=== PATIENT | male | born 1970 | race Caucasian/White ===

== ENCOUNTER 2019-04-17 07:57 | Day surgery (SDC) | payer OTHER, SELFPAY ==
[2019-04-17 08:16] VITALS: BP 142/88; PULSE 83; RESP 18; TEMP 36.2; O2SAT 97; BMI 36.1
[2019-04-17] MEDS: Lactated Ringers 1,000 ML 100 ML IV (08:34)
--- NOTE | 2019-04-17 08:49 | HP.PCM_ITS ---
History of Present Illness Date of Admission: 04/17/19 The patient is a 49 year old M here for screening colonoscopy. He has never had a colonoscopy in the past. Denies any abdominal pain or blood in his stool. He denies any family history of colon cancer. Past Medical/Surgical History - Planned Operation Planned Operative Procedure/s: COLONOSCOPY Date of Operative Procedure: 04/17/19 Permit Signed: Yes S.O.S: No Is This Patient Having a Total Joint: No - Previous Hospitalizations/Surgeries HX Hospitalizations: No HX of Surgeries: WISDOM Any Problems With Anesthesia: Yes You/Your Family Experience Fever (Hyperthermia) With Anes: No Cholinesterase deficiency: No - Cardiovascular Hx Chest Pain within Last 2 months: No Hx of Irregular Heartbeat and/or Afib: No Hx Heart Attack: No Hx Congestive Heart Failure: No Hx Rheumatic Fever: No Hx Hypertension: Yes - ON MEDS, CONTROLLED Hx Internal Defibrillator: No Hx Pacemaker: No Hx Cardiac Catheterization: No Hx Cardiac Surgery/Stents/Etc.: No Hx Stress Test: Yes - [facility] 10 YRS AGO HX Edema: No Hx Pain in Legs when Walking/Leg Cramps: No - Respiratory Chronic Cough: No HX of Shortness of Breath: No Hoarseness: No Hx Chronic Obstructive Pulmonary Disease (COPD): No Hx Asthma: No Hx Emphysema: No Hx Sleep Apnea: No Hx Oxygen Use at Home: No Hx Respiratory Tract Infection/Cold (presently): No Do You Snore Loudly (louder than talking or can be heard): No Do You Often Feel Tired/ Fatigued/ Sleepy Dring Daytime?: No Has Anyone Observed You Stop Breathing During Sleep?: No Result (for STOP score): Negative Hx Smoking: No Smoking Status: Never smoker - Gastrointestinal Hx Gastroesophageal Reflux: Yes Controlled With Meds: Yes - ON NEXIUM Hx Gastrointestinal Disorders: No Hx Gastrointestinal Bleed: No Hx Ulcer: No Hx Hiatal Hernia: No Difficulty Chewing/Swallowing: No Recent Onset of Swallowing Problems: No Special diet followed at home: No Hx Unplanned Weight Loss of 20#: No HX Unplanned Weight Gain of 20#: No - Neurological Hx Seizures: No HX Syncope/Blackout Spells/Unconsciousness: No Hx CVA/Stroke: No Hx Transient Ischemic Attacks (TIA): No Hx Multiple Sclerosis: No Hx Parkinson's Disease: No Hx Head/Neck Injury: No Hx Headaches: No Hx Back Injury/Pain: No Recent Onset of Speech Difficulty: No Restless Legs: No Does patient have nerve stimulator: No Patient instructed to have device shut off: No Rep notified?: No - Blood Disorder Hx Leukemia: No Bleeding Tendencies: No Hx Deep Vein Thrombosis: No Hx High Cholesterol: Yes - ON MED Blood Transmitted Disease: No Hx Hepatitis: No Hx Cirrhosis: No Hx Anemia: No Hx Blood Disorders: No - Genitourinary Hx Renal Disease: No - Musculoskeletal Hx Arthritis: No Hx Rheumatoid Arthritis: No Hx Gout: Yes - X1 EPISODE Recent Onset of an Orthopedic Problem: No - Endocrine Hx Diabetes: No Thyroid Disease: No Hx Steroid Therapy: No - Psycho/Social Hx Substance Use: No Hx Alcohol Use: Yes - SOCIAL Hx Anxiety: No Hx Depression: No Mental Illness: No Hx Dementia: No - Miscellaneous Hx Cancer: No Recent Exposure to Contagious Disease: No Active MRSA: No Hx of C-Diff: No Any Loose Teeth: No Allergies No Known Allergies Allergy (Verified 04/17/19 08:15) - Discharge Is Pt Admitted From a Snf, or a Detention: No Who Could Help: After D/C, Where Do you Plan to Go: Return Home - Physical Exam General: Alert, Oriented x3 Lungs: Clear to auscultation, Normal air movement Cardiovascular: Regular rate, Regular Rhythm Abdomen: Soft, Non Tender, Non-Distended Vital Signs Temp Pulse Resp BP Pulse Ox 97.2 F L 83 18 142/88 H 97 04/17/19 08:16 04/17/19 08:16 04/17/19 08:16 04/17/19 08:16 04/17/19 08:16 Oxygen Delivery Method Room Air Weight: 251 lb 8.759 oz Body Mass Index (BMI) 36.1 Assessment/Plan 49-year-old male for screening colon cancer I explained endoscopy in detail to the patient. I explained the risks including but not limited to stroke or heart attack with anesthesia, perforation of the GI tract, bleeding, infection. I explained that any of these could necessitate further emergency surgery. The patient understands and all questions were answered sufficiently. The patient wishes to proceed with procedure. Darrius Griffiths MD Pager: [facility] [address] [place] [address], [address] [place] [phone] Office: Surgery Risks - Colonoscopy Risks Include but are not Limited To: Risks include but are not limited to: Bleeding, perforation requiring further surgery, inability to complete colonoscopy requiring barium enema.
--- NOTE | 2019-04-17 09:13 | OP.ENDO_ITS ---
04/17/2019 Zak Mota [address] [place] [address] Re : Colonoscopy procedure for H Rising Dear Dr. Mota This procedure was performed on Wednesday, April 17, 2019. My impressions and recommendations are as follows: Impressions : - The entire examined colon is normal on direct and retroflexion views. - No specimens collected. Recommendations : - Discharge patient to home. - Resume previous diet. - Continue present medications. - Await pathology results. - Repeat colonoscopy in 10 years for screening purposes. My findings are described in the full procedure note, which is enclosed. If I can be of further assistance, please feel free to contact me at Doctor phone number(s): , Work: . Sincerely, Darrius Griffiths MD 04/17/2019 9:12:37 AM This report has been signed electronically.
[2019-04-17 09:14] VITALS: BP 115/60; BP 142/88; PULSE 71; RESP 18; TEMP 36.4; O2SAT 94
[2019-04-17 09:20] VITALS: BP 104/82; BP 142/88; PULSE 88; RESP 18; O2SAT 97
[2019-04-17 09:25] VITALS: BP 104/76; BP 142/88; PULSE 85; RESP 18; O2SAT 96
[2019-04-17 09:30] VITALS: BP 114/78; BP 142/88; PULSE 79; RESP 18; TEMP 36.3; O2SAT 95
[2019-04-17 10:05] VITALS: BP 142/88
== END 2019-04-17 10:19 | disposition home or self-care (01) ==
LOC: EN 07:59 → AC 08:01
PROVIDERS: Family Provider Family Medicine; PCP Family Medicine; Referring Provider Family Medicine; Visit Provider Surgery
PROC: 0DJD8ZZ Inspection of Lower Intestinal Tract, Via Natural or Artificial Opening Endoscopic (ICD-10-PCS; CPT 45378; principal; 2019-04-17 08:55)
DX: Z12.11 Encounter for screening for malignant neoplasm of colon (principal); I10 Essential (primary) hypertension; E78.00 Pure hypercholesterolemia, unspecified; K21.9 Gastro-esophageal reflux disease without esophagitis
CPT/HCPCS: 45378; J7120

== ENCOUNTER → 2020-10-22 10:12 | Outpatient (CLI) | payer OTHER, SELFPAY ==
[2020-10-22 12:50] LABS: Microalbumin,Random Urine 13.9 mg/L (NO RANGE EST.); Microalbumin:Creatinine Ratio 17.8 mg/g CRE (<30 mg/g CRE)
[2020-10-22 13:04] LABS: ALB/GLOB Ratio 1.1 RATIO (0.9-2.4); AST(SGOT) 69 U/L (15-37); Alanine Aminotransfer ALT/SGPT 99 U/L (16-61); Alkaline Phosphatase 107 U/L (45-117); Anion Gap 7 (5-15); BUN 12 mg/dL (7-18); BUN/Creat Ratio 12.8 RATIO (10-20); Chloride 100 mmol/L (98-107); Cholesterol 158 mg/dL (200); Creatinine, Serum 0.94 mg/dL (0.70-1.30); EST Glomerular Filtration Rate 90 mL/min (>60); Est Glom Filt Rate - Afr Amer 109 mL/min (>60); Globulin 3.7 g/dL (2.2-4.2); Glucose 236 mg/dL (74-106); High Density Lipoprotein 52 mg/dL; Potassium 3.9 mmol/L (3.5-5.1); Protein, Total 7.7 g/dL (6.4-8.2); Sodium Level 137 mmol/L (136-145)
== END ==
PROVIDERS: PCP Family Medicine; Referring Provider Family Medicine; Visit Provider Family Medicine
DX: I10 Essential (primary) hypertension (principal); E78.00 Pure hypercholesterolemia, unspecified
CPT/HCPCS: 36415; 80053; 82043; 82465; 82570; 83718

== ENCOUNTER → 2021-03-20 08:10 | Outpatient (CLI) | payer OTHER, SELFPAY | PROVIDERS: PCP Family Medicine; Referring Provider Family Medicine; Visit Provider Family Medicine | DX: Z00.00 Encounter for general adult medical examination without abnormal findings (principal) ==

== ENCOUNTER → 2021-04-08 08:22 | Outpatient (CLI) | payer OTHER, SELFPAY ==
[2021-04-08 10:45] LABS: AST(SGOT) 35 U/L (15-37); Alanine Aminotransfer ALT/SGPT 53 U/L (16-61); Albumin, Serum 3.8 g/dL (3.2-5.0); Alkaline Phosphatase 82 U/L (45-117); Anion Gap 6 (5-15); BUN 14 mg/dL (7-18); BUN/Creat Ratio 15.9 RATIO (10-20); Chloride 103 mmol/L (98-107); Creatinine, Serum 0.88 mg/dL (0.70-1.30); EST Glomerular Filtration Rate 97 mL/min (>60); Est Glom Filt Rate - Afr Amer 117 mL/min (>60); Globulin 3.7 g/dL (2.2-4.2); Glucose 134 mg/dL (74-106); PSA,Total - Annual Screen 0.18 ng/mL (0.00-4.00); Potassium 4.1 mmol/L (3.5-5.1); Protein, Total 7.5 g/dL (6.4-8.2); Sodium Level 138 mmol/L (136-145)
[2021-04-08 11:28] LABS: Hepatitis C Antibody Non-Reactive (Nonreactive)
== END ==
PROVIDERS: PCP Family Medicine; Referring Provider Family Medicine; Visit Provider Family Medicine
DX: K76.0 Fatty (change of) liver, not elsewhere classified (principal); Z12.5 Encounter for screening for malignant neoplasm of prostate; Z11.59 Encounter for screening for other viral diseases
CPT/HCPCS: 36415; 80053; 84153; 86803; G0103

== ENCOUNTER → 2022-02-18 | Outpatient (CLI) | payer OTHER, SELFPAY ==
[2022-02-18 11:19] LABS: AST(SGOT) 38 U/L (15-37); Alanine Aminotransfer ALT/SGPT 62 U/L (16-61); Albumin, Serum 3.8 g/dL (3.2-5.0); Alkaline Phosphatase 80 U/L (45-117); Anion Gap 6 (5-15); BUN 17 mg/dL (7-18); BUN/Creat Ratio 17.9 RATIO (10-20); Chloride 105 mmol/L (98-107); Cholesterol 136 mg/dL (200); Creatinine, Serum 0.95 mg/dL (0.70-1.30); EST Glomerular Filtration Rate 88 mL/min (>60); Est Glom Filt Rate - Afr Amer 106 mL/min (>60); Globulin 3.7 g/dL (2.2-4.2); Glucose 128 mg/dL (74-106); High Density Lipoprotein 53 mg/dL; Protein, Total 7.5 g/dL (6.4-8.2); Sodium Level 138 mmol/L (136-145); Triglycerides 99 mg/dL; Very Low Density Lipoprotein 20 mg/dL (5-40)
[2022-02-23 17:50] LABS: Hemoglobin A1c 8.4 % (3.8-5.6)
== END | disposition home or self-care (01) ==
LOC: MFPLAB 09:14
PROVIDERS: PCP Family Medicine; Visit Provider Family Medicine
DX: I10 Essential (primary) hypertension (principal); E78.00 Pure hypercholesterolemia, unspecified; R73.01 Impaired fasting glucose
CPT/HCPCS: 36415; 80053; 80061; 83036

== ENCOUNTER → 2022-10-04 | Outpatient (CLI) | payer OTHER, SELFPAY ==
[2022-10-04 12:16] LABS: Hematocrit 44.2 % (40-54); Hemoglobin 15.2 g/dL (13.0-16.5); Mean Corp Hgb Conc 34.4 g/dL (32-36); Mean Corpuscular Hgb 32.3 pg (27.0-32.0); Mean Corpuscular Volume 93.8 fL (80-94); Mean Platelet Vol. 9.4 fl (6.2-12.0); Platelet Count 229 K/mm3 (150-450); RBC Distribution Width CV 12.4 % (11.6-14.6); Red Blood Count 4.71 M/mm3 (4.6-6.2); White Blood Count 6.3 K/mm3 (4.4-11.0)
[2022-10-04 12:54] LABS: ALB/GLOB Ratio 1.1 RATIO (0.9-2.4); AST(SGOT) 27 U/L (15-37); Alanine Aminotransfer ALT/SGPT 40 U/L (16-61); Alkaline Phosphatase 71 U/L (45-117); Anion Gap 5 (5-15); BUN 18 mg/dL (7-18); BUN/Creat Ratio 17.6 RATIO (10-20); Calcium,Total 9.5 mg/dL (8.5-10.1); Chloride 104 mmol/L (98-107); Cholesterol 109 mg/dL (200); Creatinine, Serum 1.02 mg/dL (0.70-1.30); EST Glomerular Filtration Rate 81 mL/min (>60); Est Glom Filt Rate - Afr Amer 98 mL/min (>60); Globulin 3.8 g/dL (2.2-4.2); Glucose 100 mg/dL (74-106); High Density Lipoprotein 51 mg/dL; Potassium 4.2 mmol/L (3.5-5.1); Protein, Total 7.8 g/dL (6.4-8.2); Sodium Level 137 mmol/L (136-145); Uric Acid 7.5 mg/dL (3.5-7.2)
== END | disposition home or self-care (01) ==
LOC: MFPLAB 09:44
PROVIDERS: PCP Family Medicine; Visit Provider Family Medicine
DX: R63.4 Abnormal weight loss (principal); E11.9 Type 2 diabetes mellitus without complications; E66.9 Obesity, unspecified; Z68.32 Body mass index [BMI] 32.0-32.9, adult; K76.0 Fatty (change of) liver, not elsewhere classified; I10 Essential (primary) hypertension
CPT/HCPCS: 36415; 80053; 82465; 83718; 84550; 85027

== ENCOUNTER 2023-04-18 15:30 | Outpatient (RCR) | payer OTHER, SELFPAY ==
--- NOTE | 2023-04-04 16:16 | HP.PTEVAL_ITS ---
Patient's Visit Information Visit Information Visit Information: Nathalia CAMPOS is a 53 year old M referred to Physical Therapy by Dr. Gavin Shin MD with a diagnosis of cervivalgia/L arm paresthesia. Date of Evaluation: 04/04/23 Physical Therapist: AYLIN Maldonado Visit Plan Frequency: 2x /Week Duration: 6 Weeks Plan: 2X/ week for 6 weeks for centralization of sx, postural exercises, po ssible c-spine traction with HEP. May try modalities as needed. Subjective Subjective: He saw last week. He has been having L sided neck pain. Pain in L shoulder blade and down the L arm. His neck is stiff and he has upper c-spine tightness. By the end of the day his head feels heavy and aching pain in bicep and forearm and occ tingling in fingertips. 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 He was picking up a lot of stuff and tossing it in the dumpster right around when this all started. He feels that he may have some sort of bulging disc. He got a massage here and they said he was a mess and got another one 2 weeks ago and he was in a lot of pain then. It seems to be slowly getting better. He is taking Gabapetin and is not compliant and Flexeril (no difference). He is R handed. His computer is down and his TV is so he has to look up. While he is driving he might be a little down. When sleeping he s leeps with a puffy pillow... he know uses a flat pillow. He sleeps with his arm under him. He can only turn neck to the L when sleeping on his stomach. He leaves Tuesday for a golf trip. He does get spasms in his neck. Pain neck pain: Pain Intensity (Out of 10): 1 L arm pain: Pain Intensity (Out of 10): 0 tingling in L hand: Pain Intensity (Out of 10): 3 Objective Objective: Neck AROM: flex 100% (increase pain), ext 50% (increase pain), Rot B 80%, SB B 100% Sitting chin tucks X 10 (increase pain in L shoulder blade and trap) Supine lying on towel roll: no pain, supine chin tucks 2 X 10 ( no pain).... third set of 10 (slight increase pain in L shoulder blade).... continued to lay supine on a towel roll.... Then did one more set of X 10 chin tucks in supine on towel roll...... Sat up and tried to do X 10 chin tucks in sitting... started with tingling in L fingers supine chin tucks X 10 more... no sx attempted some manual c-spine distraction and pt sat up with still not pain.... Palpation: tender at levator origin on the L Posture: sits with rounded shoulders and slightly flexed posture. UE AROM: Full B UE MMT: R shld flex 17.9 and L 15.9 R shld abd 15.9 and L 14.2 R shld ER 14.2 and L 19.9 R handed R assignment desk assistant strength 125 and L 95 Balance/Special Test Scores Oswestry Neck Score: 9 Goals Goal 1:: I HEP Goal Time Frame: 4-6 Weeks Goal 2:: Abolish L arm sx Goal Time Frame: 4-6 Weeks Goal 3:: Increase L assignment desk assistant strength (95 at eval L) Goal Time Frame: 4-6 Weeks Goal 4:: Sit with upright posture during treatment sessions Goal Time Frame: 4-6 Weeks Rehabilitation Potential Rehabilitation Potential: Good Anticipated Interventions Patient/Client Instruction: Educate patient on: Condition and Plan of Care For the Purpose of:: To decrease pain, To decrease swelling/inflammation, To increase ROM, To improve nutrient delivery to tissue, To improve muscle performance and motor function, To improve ability to perform ADL's, To increase tolerance to activity/condition/position, To improve performance and independence with ADL's, To improve ability of physical actions for home/community/work/leisure, To improve health of tissue, To decrease soft tissue restriction and To increase flexibility/ROM Therapeutic Exercise to Include: Strength training, Balance training, Coordination, Postural training, Flexibilty training, Active ROM and Scapular Strength/Stabilization For the Purpose of:: To decrease pain, To increase ROM, To improve nutrient delivery to tissue, To improve muscle performance and motor function, To improve ability to perform ADL's, To increase tolerance to activity/condition/position, To improve performance and independence with ADL's, To decrease level of supervision to perform tasks, To improve ability of physical actions for home/community/work/leisure, To improve gait and locomotor functions, To improve health of tissue, To decrease soft tissue restriction and To increase flexibility/ROM Manual Therapy Techniques to Include: Passive ROM and Soft tissue mobilization For the Purpose of:: To increase ROM, To improve nutrient delivery to tissue, To improve muscle performance and motor function, To decrease soft tissue restriction and To increase flexibility/ROM IF ES: Yes Cryotherapy (ice pack, ice massage): Yes Thermo therapy (hot pack): Yes Ultrasound (thermal/non thermal): Yes For the Purpose of:: To decrease pain, To decrease swelling/inflammation, To increase ROM, To improve nutrient delivery to tissue and To improve muscle performance and motor function Text: Thank you for the opportunity to evaluate your patient. For Medicare and Medicare HMO plans, please review the plan of care and approve it. It will need to be FAXED BACK to us at [phone] for Medicare purposes. For Medicare only, by signing this I certify the plan of care. Please let me know if there are questions or concerns regarding this plan of care. Physician Signat ure: Date:
--- NOTE | 2023-08-24 15:49 | HP.PT.NRP(2) ---
Patient Information Patient Information: Nathalia CAMPOS was seen in my office for initial evaluation on . The following Plan of Care was established for this patient: Last Seen Last Seen: This patient was last seen in our office . Pertinent comments regarding their Physical therapy will appear below: At this point I will be discontinuing this patient from physical therapy. I would be happy to see this patient again in the future if found appropriate by the physician. Thank you! Cheryl Delgado, MPT
== END 2023-04-18 19:00 | disposition home or self-care (01) ==
LOC: PT 15:30
PROVIDERS: PCP Family Medicine; Referring Provider Family Medicine; Visit Provider Family Medicine
DX: M54.2 Cervicalgia (principal); R20.2 Paresthesia of skin
CPT/HCPCS: 97110; 97140; 97161

== ENCOUNTER → 2023-04-20 | Outpatient (CLI) | payer OTHER, SELFPAY ==
--- NOTE | 2023-04-20 11:45 | RAD_ITS ---
INDICATION: PAIN EXAMINATION/TECHNIQUE: X-RAY - XR Spine Cervical 4 or 5 Views COMPARISON: None. FINDINGS: VERTEBRAE: Preserved vertebral body height. No fracture. No spondylolisthesis. Preservation of the normal cervical lordosis. No significant facet arthropathy. DISCS: Mild narrowing of disc height at C5-C7. Degenerative disease at the anterior C1-C2 articulation. NECK SOFT TISSUES: No prevertebral soft tissue widening. LUNG APICES: Clear. RAD/Cerv Spine 4 or 5 Views IMPRESSION: Mild degenerative disease with no acute fracture or subluxation.. Electronically Signed: Shauna Caraballo MD at 16:50 EDT ,
== END | disposition home or self-care (01) ==
PROVIDERS: PCP Family Medicine; Referring Provider Family Medicine; Visit Provider Family Medicine
DX: M54.2 Cervicalgia (principal)
CPT/HCPCS: 72050

== ENCOUNTER → 2023-12-29 | Outpatient (CLI) | payer OTHER, SELFPAY ==
[2023-12-29 17:46] LABS: Absolute Lymphocyte Count 2.81 X10^3/uL (0.83-4.51); Absolute Neutrophil Count 3.8 X10^3/uL (2.0-7.7); Basophil# 0.04 X10^3/uL; Basophil% 0.5 % (0-1); Eosinophil# 0.22 X10^3/uL; Hematocrit 42.8 % (40-54); Hemoglobin 14.9 g/dL (13.0-16.5); Lymphocyte # 2.81 X10^3/ul (0.83-4.51); Lymphocyte % 38.1 % (19-41); Mean Corp Hgb Conc 34.8 g/dL (32-36); Mean Corpuscular Hgb 31.9 pg (27.0-32.0); Mean Corpuscular Volume 91.6 fL (80-94); Mean Platelet Vol. 9.3 fl (6.2-12.0); Monocyte# 0.44 X10^3/uL; NRBC Flagged by Analyzer 0 % (0-5); Neutrophil # 3.84 X10^3/uL (2.7-7.7); Neutrophil % 52.1 % (47-70); Platelet Count 227 K/mm3 (150-450); RBC Distribution Width CV 12.2 % (11.6-14.6); Red Blood Count 4.67 M/mm3 (4.6-6.2); White Blood Count 7.4 K/mm3 (4.4-11.0)
[2023-12-29 18:39] LABS: ALB/GLOB Ratio 1.1 RATIO (0.9-2.4); AST(SGOT) 44 U/L (15-37); Alanine Aminotransfer ALT/SGPT 60 U/L (16-61); Alkaline Phosphatase 74 U/L (45-117); Anion Gap 9 (5-15); BUN 12 mg/dL (7-18); CRP, High Sensitivity Cardiac 0.71 mg/L; Calcium,Total 9.1 mg/dL (8.5-10.1); Chloride 101 mmol/L (98-107); Creatinine, Serum 0.92 mg/dL (0.70-1.30); EST Glomerular Filtration Rate 91 mL/min (>60); Est Glom Filt Rate - Afr Amer 110 mL/min (>60); Globulin 3.6 g/dL (2.2-4.2); Glucose 97 mg/dL (74-106); PSA,Total - Annual Screen 0.18 ng/mL (0.00-4.00); Potassium 3.7 mmol/L (3.5-5.1); Protein, Total 7.6 g/dL (6.4-8.2); Sodium Level 135 mmol/L (136-145)
[2024-01-04 16:10] LABS: CHOLESTEROL TOTAL 140 mg/dL (100-199); HDL-C 57 mg/dL (>39); HDL-P TOTAL 30.7 umol/L (>=30.5); INSULIN RESISTANCE SCORE 45 (<=45); LDL SIZE 20.6 nm (>20.5); LDL-C (NIH CALC) 61 mg/dL (0-99); LDL-P 1006 nmol/L (<1000); SMALL LDL-P 456 nmol/L (<=527); TRIGLYCERIDES 122 mg/dL (0-149)
== END | disposition home or self-care (01) ==
LOC: MFPLAB 14:36
PROVIDERS: PCP Family Medicine; Visit Provider Family Medicine
DX: Z12.5 Encounter for screening for malignant neoplasm of prostate (principal); E11.9 Type 2 diabetes mellitus without complications; E78.5 Hyperlipidemia, unspecified; I10 Essential (primary) hypertension
CPT/HCPCS: 36415; 80053; 80061; 83704; 84153; 85025; 86141; G0103

== ENCOUNTER 2024-11-16 07:30 | Outpatient (RCR) | payer OTHER, SELFPAY ==
--- NOTE | 2024-10-04 18:49 | HP.PTEVAL_ITS ---
Patient's Visit Information Visit Information Visit Information: ARUN CAMPOS is a 54 year old M referred to Physical Therapy by Dr. Zak Mota MD with a diagnosis of L shoulder strain. Date of Evaluation: 10/04/24 Physical Therapist: Zak Leonard, DPT, OCS, CSCS Visit Plan Frequency: 2x /Week Duration: 4-6 Weeks Plan: 2x/week for 4-6 weeks for... HEP pendulum and impiongement activity modifications written for patient and postural review with activity modifciation. treat with 1. US to L supra insert nonthermal, grade 1-2 g-h mobs L shoulder, stretch pec and PROM er, IR, CFM L supra and into muscle belly. 2. strength posture and RC L without pain, ice massage if painful at rest. 3. start RPW 10/11 if not improving with home changes weekly x 4(patient agreeable) 4. ensure obeying Home ex and activity modifcaiton for impingement. Subjective Subjective: L shoulder pain, not sure why. Was docking a boat and holding an anchor and held onto boat may have pulled arm. Not bad at the time, backswing has been hard but has progressed to point where it hurts in L shoulder and tricep and waking him up at night. Flips an flops around. Cannot put coat or shirt on comfortably. Dysfunction for last 6 months and just been putting up with it, worsening. Employed, [employer] travel car and computer laptop. Works pretty normal and not a problem. Golf is an issue and sleeping is hard , those are his two big issues. Has trip planned in november to [place]. consistently comofrtable at rest and sleeping on R side. Can't sleep on L side. Inadvertently flips to L. No numbness or tingling, sitting bothers him. Pain L shoulder: Pain Intensity (Out of 10): 0 Pain Intensity Range: 5 Comment: worse exteninding out to side, comfy at rest Objective Objective: L shoulder pain with removing jacket. Posture is forward head and protracted scap B. Max tender over supra muscle belly and into insertion as well as moderately subscap insertion on L. AROM B shoulders elbows and wrists symmetrical except for er 50 on L and 70 on R AND IR end range pain on L. Scapular AROM is WFL B but depressiona nd retraction tight B. reflexes 2/3 bi and tri, sensation UE WNL to gross light touch. strength is 4/5 B shoulders but pain L with er, IR, empty can and abduction transiently. cervical aROM WNL and without pain today . - c/s compression + L HK and neer impingement tests, moving arm cross body on L hurts. - apprehension, - ext rotation lag, - drop arm tests, - sulcus. Balance/Special Test Scores Quick DASH Score: 40.9075 Goals Goal 1:: Full aROM L shoulder without increased pain Goal Time Frame: 4-6 Weeks Goal 2:: I appropriate HEP to limit future problems in golf and ADLS Goal Time Frame: 4-6 Weeks Goal 3:: Sleep without waking at night due to pain, Goal Time Frame: 4-6 Weeks Goal 4:: Pt feel 90% better in overall shoulder pain at 1/10 at worst Goal Time Frame: 4-6 Weeks Goal 5:: golf swing without pain Goal Time Frame: 4-6 Weeks Rehabilitation Potential Physical Therapy Diagnosis: L shoulder pain likely impingement limiting function Rehabilitation Potential: Good Anticipated Interventions Patient/Client Instruction: Educate patient on: Condition and Plan of Care For the Purpose of:: To decrease pain, To increase ROM, To improve nutrient delivery to tissue, To improve muscle performance and motor function and To increase tolerance to activity/condition/position Therapeutic Exercise to Include: Strength training, Postural training, Flexibilty training, Passive ROM and Active ROM For the Purpose of:: To decrease pain, To decrease swelling/inflammation, To increase ROM, To improve nutrient delivery to tissue, To improve muscle performance and motor function and To increase tolerance to activity/condition/position Manual Therapy Techniques to Include: Mobilization, Passive ROM and Soft tissue mobilization For the Purpose of:: To decrease pain, To increase ROM, To improve nutrient delivery to tissue and To improve muscle performance and motor function Ultrasound (thermal/non thermal): Yes (nonthermal) For the Purpose of:: To decrease pain, To decrease swelling/inflammation and To improve nutrient delivery to tissue Text: Thank you for the opportunity to evaluate your patient. For Medicare and Medicare HMO plans, please review the plan of care and approve it. It will need to be FAXED BACK to us at [phone] for Medicare purposes. For Medicare only, by signing this I certify the plan of care. Please let me know if there are questions or concerns regarding this plan of care. Physician Signature: Date:
--- NOTE | 2024-11-16 08:18 | HP.PTDCSUM ---
Discharge Summary D/C summary: It has been my pleasure to treat ARUN CAMPOS referred by Dr. Zak Mota MD, with the diagnosis of L shoulder strain for a total of 12 visit(s). Discharge Date: 11/16/24 Please see the following information for a summary of their discharge status. Subjective Subjective: Shoulder is feeling better. Tolrating more in therapy. Only discomfort is cross body. Feels like he can do gym workout himself now. Activities are normal at home. Pain L shoulder: Pain Intensity (Out of 10): 0 Overall Improvement % Improvement: 80 Objective Objective/Function: Full aROM and 4+/5 strength L shoulder without pain today, slight discomfort across body but transient adn manageable. Goals Goal 1:: Full aROM L shoulder without increased pain Goal Progress: Goal Met Goal 2:: I appropriate HEP to limit future problems in golf and ADLS Goal Progress: Goal Met Goal 3:: Sleep without waking at night due to pain, Goal Progress: Goal Met Goal 4:: Pt feel 90% better in overall shoulder pain at 1/10 at worst Goal Progress: 8-% Goal 5:: golf swing without pain Goal Progress: Progressing Plan Plan: d/c to gym and home ex. D/C Information d/c sentence: If there are questions or concerns regarding this patient's physical therapy, please feel free to call me at [phone]. Thank you for the referral of this patient. Sincerely, Zak Leonard, DPT, OCS, CSCS Balance/Gait/Functional tests Balance/Special Test Scores Quick DASH Score: 6.8175 Improvement % Improvement: 80
== END 2024-11-16 14:10 | disposition home or self-care (01) ==
LOC: PT 07:30
PROVIDERS: PCP Family Medicine; Referring Provider Family Medicine; Visit Provider Family Medicine
DX: S43.402D Unspecified sprain of left shoulder joint, subsequent encounter (principal)
CPT/HCPCS: 97035; 97110; 97140; 97161; 97164; 97530

== ENCOUNTER → 2025-04-26 | Outpatient (CLI) | payer OTHER, SELFPAY ==
[2025-04-26 10:28] LABS: Creatinine, Urine (random) 187.00 mg/dL (39.00-259.00); Microalbumin,Random Urine < 12.0 mg/L (<20 mg/L)
[2025-04-26 10:34] LABS: Hematocrit 41.7 % (40-54); Hemoglobin 15.2 g/dL (13.0-16.5); Immature Granulocytes Count 0.010 X10^3/uL (0.0-0.0); Mean Corp Hgb Conc 36.5 g/dL (32-36); Mean Corpuscular Volume 89.5 fL (80-94); Mean Platelet Vol. 9.0 fl (6.2-12.0); NRBC Flagged by Analyzer 0 % (0-5); Platelet Count 203 K/mm3 (150-450); RBC Distribution Width CV 11.9 % (11.6-14.6); RBC Distribution Width SD 39.2 fl (35.1-43.9); Red Blood Count 4.66 M/mm3 (4.6-6.2); White Blood Count 5.7 K/mm3 (4.4-11.0)
[2025-04-26 10:40] LABS: AST(SGOT) 38 U/L (<=37); Alanine Aminotransfer ALT/SGPT 47 U/L (<=46); Albumin, Serum 4.4 g/dL (3.5-5.0); Alkaline Phosphatase 69 U/L (40-129); Anion Gap 12 (5-15); BUN 17 mg/dL (4-19); BUN/Creat Ratio 18.7 RATIO (10-20); Calcium,Total 9.4 mg/dL (7.6-11.0); Carbon Dioxide 23.0 mmol/L (21.0-32.0); Chloride 100 mmol/L (98-108); Cholesterol 128 mg/dL (<=200); Globulin 3.0 g/dL (2.2-4.2); Glucose 133 mg/dL (70-99); Low Density Lipoprotein Calc. 57 mg/dL; Potassium 4.2 mmol/L (3.3-5.1); Triglycerides 115 mg/dL; Very Low Density Lipoprotein 23 mg/dL (5-40); cholesterol:hdl ratio screen 2.68
[2025-04-27 04:07] LABS: GGTP 62 IU/L (0-65)
== END | disposition home or self-care (01) ==
LOC: MFPLAB 08:38
PROVIDERS: PCP Family Medicine; Visit Provider Family Medicine
DX: K76.0 Fatty (change of) liver, not elsewhere classified (principal); I10 Essential (primary) hypertension; E66.811 Obesity, class 1; Z68.34 Body mass index [BMI] 34.0-34.9, adult
CPT/HCPCS: 36415; 80053; 80061; 82043; 82570; 82977; 84443; 85025